=== PATIENT | female | born 1975 | race Caucasian/White ===

== ENCOUNTER 2018-12-04 17:10 | Emergency (ER) | payer SELFPAY ==
[~2018-12-04] VITALS: Ht 160 cm; Wt 68.0 kg
[2018-12-04 17:10] VITALS: BP 125/68
--- NOTE | 2018-12-04 17:10 | NUR ---
Patient BIBA BLS, transferred to bed 1. RN evaluating patient at bedside.
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
[2018-12-04] MEDS ORDERED: KETOROLAC 60 MG/2 ML VIAL IM ONE (17:25)
--- NOTE | 2018-12-04 18:00 | NUR ---
PT TO CT VIA WC AND BACK TO [facility]
--- NOTE | 2018-12-04 18:38 | NUR ---
CONTACT RADIOLOGY AND SPOKE TO MARTY ASKING ABOUT REPORT FOR CT SCAN. MARTY STATES, "IT HASNT BEEN READ YET, IM GOING TO CONTACT ELAYNE TO SEE WHATS GOING ON."
--- NOTE | 2018-12-04 18:50 | NUR ---
FRIEND AT BEDSIDE. PT LAYIN COMFORTABLY IN BED, NO GRIMACING, USING PHONE.
--- NOTE | 2018-12-04 18:58 | NUR ---
DISCHARGE TEACHING GIVEN BY DR. COELLO AND TIERA.
[2018-12-04 19:00] VITALS: BP 125/68
== END 2018-12-04 18:58 | disposition home or self-care (01) ==
LOC: MED 17:10
DX: S00.03XA Contusion of scalp, initial encounter (principal); S19.9XXA Unspecified injury of neck, initial encounter; Y08.89XA Assault by other specified means, initial encounter; Y93.89 Activity, other specified; Y92.89 Other specified places as the place of occurrence of the external cause; Y99.8 Other external cause status
CPT/HCPCS: 70450; 72125; 96372; 99284; J1885